=== PATIENT | female | born 1990 | race African-American/Black ===

== ENCOUNTER 2018-10-24 01:23 | Emergency (ER) | payer SELFPAY ==
[~2018-10-24] VITALS: Ht 160 cm; Wt 63.3 kg
[~2018-10-24 01:23] MED LIST: HYDR50TA15 PO; IBUP-1542 PO
[2018-10-24 01:37] VITALS: BP 126/64; PULSE 96; RESP 22; Ht 160 cm; Wt 63.3 kg
[2018-10-24] MEDS ORDERED: ONDANSETRON (ODT) 4 MG TAB ODT STA (02:56)
[2018-10-24] MEDS ORDERED: ASPIRIN 325 MG TAB PO ONE (03:00)
[2018-10-24] MEDS ORDERED: FAMOTIDINE 20 MG TAB PO ONE (03:00)
[2018-10-24] MEDS ORDERED: LORAZEPAM 1 MG TAB PO ONE (03:00)
[2018-10-24] MEDS ORDERED: LIDOCAINE/MYLANTA 40 ML BTL PO ONE (03:00)
== END 2018-10-24 03:20 | disposition home or self-care (01) ==
LOC: FTE 01:23
DX: F41.9 Anxiety disorder, unspecified (principal)
CPT/HCPCS: 81025; 93005